=== PATIENT | male | born 1965 | race Caucasian/White ===

== ENCOUNTER → 2023-06-09 | Day surgery (SDC) | payer BC, OTHER ==
[~2023-06-09] VITALS: Ht 162.6 cm; Wt 76.4 kg
[~2023-06-09] MED LIST: ALLE180T33 PO; ALOG25TA PO; ATOR80TA59 PO; FLUO10CA18 PO; INSU100I36 SQ; LIDOCAINE 2% 100MG/5ML SDV (FOR ANES.) As Ordered ONE; LISI5TAB11 PO; MELA3TAB21 PO; MELA5CAP2 PO; METF750T36 PO; MONT10TA97 PO; NS 1,000 ML IV ONE; OMEP40CA5 PO; OXYB-54 PO; propofoL 200 MG/20 ML VIAL As Ordered ONE
[2023-06-09 08:17] VITALS: TEMP 96.9
[2023-06-09 08:35] VITALS: BP 115/77; O2SAT 98
== END | disposition home or self-care (01) ==
LOC: M OPP 06:36
PROVIDERS: ATTEND Internal Medicine Gastroenterology
DX: Z12.11 Encounter for screening for malignant neoplasm of colon (principal); Z86.010 Personal history of colon polyps; D12.6 Benign neoplasm of colon, unspecified; K57.30 Diverticulosis of large intestine without perforation or abscess without bleeding; K64.4 Residual hemorrhoidal skin tags; K64.8 Other hemorrhoids; K44.9 Diaphragmatic hernia without obstruction or gangrene; K22.70 Barrett's esophagus without dysplasia; K29.70 Gastritis, unspecified, without bleeding; K31.89 Other diseases of stomach and duodenum; K21.00 Gastro-esophageal reflux disease with esophagitis, without bleeding; E11.9 Type 2 diabetes mellitus without complications; Z91.040 Latex allergy status; Z79.02 Long term (current) use of antithrombotics/antiplatelets; Z79.2 Long term (current) use of antibiotics; Z79.4 Long term (current) use of insulin; Z79.51 Long term (current) use of inhaled steroids; Z79.899 Other long term (current) drug therapy; Z79.83 Long term (current) use of bisphosphonates